=== PATIENT | female | born 1970 | race Caucasian/White ===

== ENCOUNTER 2017-04-17 11:07 | Outpatient (POV) | payer BC, SELFPAY | END 2017-04-17 16:30 | disposition home or self-care (01) | PROVIDERS: Family Provider Family Medicine; PCP Family Medicine; Visit Provider Urology | DX: R32 Unspecified urinary incontinence (principal) | CPT/HCPCS: 99213; 81000 ==

== ENCOUNTER → 2018-02-19 14:26 | Outpatient (POV) | payer OTHER, SELFPAY | PROVIDERS: Family Provider Family Medicine; PCP Family Medicine; Visit Provider Dermatology | DX: Z00.00 Encounter for general adult medical examination without abnormal findings (principal) ==

== ENCOUNTER → 2018-08-19 06:40 | Outpatient (CLI) | payer OTHER, SELFPAY ==
--- NOTE | 2018-08-19 06:43 | CA_ITS ---
PROCEDURE: 2-D M-mode and color Doppler study INDICATIONS FOR THE TEST: Chest pain COPD Heart Murmur Tobacco SmokingX Palpitations Fatigue Syncope Edema HypertensionXDiabetes Mellitus Rheumatic Fever SOBXDOEXObesityXHyperlipidemia Family History HDX Additional History PATIENT INFORMATION HEIGHT: 66 WEIGHT:278 GENDER: Female B/P:148/73 2-D/M-MODE INTERPRETATION: 2-D MEASUREMENTS OBSERVED VALUES IN CMS Right Ventricular Dimension (RVDd) 2.2 Interventricular Septum (Thickness)(IVsd) 1.1 Left Ventricular Internal Dimensions(LVIDd) 5.6 Left Ventricular Posterior Wall (Thickness)(LVPWd) .9 Aortic Root 3.0 Aortic Cusp Separation 1.9 Left Atrial Dimensions (LAD) 3.4 2D 1. Technically difficult study because of the patient's factor and poor acoustic windows 2. Left atrium is mildly enlarged, left ventricle is normal size, there is mild concentric left ventricular hypertrophy, visually estimated ejection fraction approximately 45-50%, there is marked hypokinesis involving the basal septum and inferior basal wall. 3. The right atrium and the ventricular normal size and contractility. 4. The aortic valve is minimally thickened and fibrosed. 5. The mitral valve has mitral annular calcification leaflets are minimally thickened. 6. The tricuspid valve is grossly normal. 7. The pulmonic valve is poorly visualized. 8. No significant pericardial effusion noted. DOPPLER INTERROGATION: Doppler interrogation of the aortic, mitral and tricuspid valvular presence of mild mitral and tricuspid regurgitation, tricuspid regurgitation jet velocity is inadequate for calculation of the right ventricular systolic pressure, diastolic parameters are within normal range. CONCLUSION: 1. Technically difficult study because of the patient's factors and poor acoustic windows 2. Mildly enlarged left atrium, normal left ventricular size, mild concentric left ventricular hypertrophy, visually estimated ejection fraction of 45-50% with segmental wall motion abnormality described above, diastolic parameters are within normal range. 3. Mild mitral and tricuspid regurgitation 4. No significant pericardial effusion noted.
--- NOTE | 2018-08-19 06:43 | NM_ITS ---
CARDIOLITE SPECT MYOCARDIAL PERFUSION LEXISCAN, REST AND STRESS: [facility] REVIEW QGS EF AND WALL MOTION EVALUATION: QPS - PERFUSION EVALUATION HISTORY: Chest pain, SOB, Fatigue, CAD, Tobacco use DOSE: 10.17 mCi technetium 99m mibi intravenously at rest followed by 29.4 mCi technetium 99m mibi following the intravenous ministration of 0.4 mg of Lexiscan. Resting blood pressure is 115/52. Stress blood pressure 130/62. FINDINGS: Ejection fraction is calculated to be 52%. Stress images reveal decreased activity in the anterior apical wall with no significant change in rest images. Gated images calculated ejection fraction of 52% with normal wall motion IMPRESSION: Decreased activity in the anterior apical wall with both stress and rest with normal ejection fraction normal wall motion. This test suggests breast attenuation however clinical correlation is advised
--- NOTE | 2018-08-19 07:54 | HMH.ITSHM ---
Current Home Medications as stated by this patient Riya Garcia or employer relations representative. []ZYRTEC SINGULAIR PROBIOTIC GABAPENTIN ASA FENOFIBRATE VITAMIN E
== END ==
PROVIDERS: PCP Family Medicine; Visit Provider Internal Medicine Cardiovascular Disease
DX: R06.02 Shortness of breath (principal); R07.9 Chest pain, unspecified; E78.5 Hyperlipidemia, unspecified; I10 Essential (primary) hypertension; I25.10 Atherosclerotic heart disease of native coronary artery without angina pectoris; Z72.0 Tobacco use; Z82.49 Family history of ischemic heart disease and other diseases of the circulatory system
CPT/HCPCS: 78452; 93017; 93306; A9502; J2785

== ENCOUNTER → 2020-03-24 12:36 | Outpatient (CLI) | payer BC, SELFPAY ==
--- NOTE | 2020-03-24 12:44 | XR_ITS ---
PROCEDURE: XR WRIST RT MIN 3V CLINICAL INDICATION: BL CTS Pain COMPARISON: CR WRR3 WRIST-3 VIEWS-RT from 11/25/2013 FINDINGS: No fracture or dislocation. No lytic or blastic change. There is normal mineralization. The joint spaces are well-preserved. No significant degenerative/arthritic changes. No erosive changes evident. Other findings:None. IMPRESSION: No acute findings. Dictated by: Juan Bar MD 03/24/2020 14:15 Juan Bar MD in [facility] 03/24/2020 14:15
--- NOTE | 2020-03-24 12:44 | XR_ITS ---
PROCEDURE: XR WRIST LT MIN 3V CLINICAL INDICATION: BL CTS Pain COMPARISON: CR WRR3 WRIST-3 VIEWS-RT from 11/25/2013 FINDINGS: No fracture or dislocation. No lytic or blastic change. There is normal mineralization. The joint spaces are well-preserved. No significant degenerative/arthritic changes. No erosive changes evident. Other findings:None. IMPRESSION: No acute findings. Dictated by: Juan Bar MD 03/24/2020 14:15 Juan Bar MD in [facility] 03/24/2020 14:15
== END ==
PROVIDERS: PCP Family Medicine; Visit Provider Orthopaedic Surgery
DX: M25.532 Pain in left wrist (principal); M25.531 Pain in right wrist
CPT/HCPCS: 73110

== ENCOUNTER → 2020-05-10 08:14 | Outpatient (CLI) | payer BC, SELFPAY ==
[2020-05-10 08:17] LABS: MANUAL DIFFERENTIAL MANUAL DIFFERENTIAL (MANUAL DIFF)
[2020-05-10 09:52] LABS: Basophils # 0.1 K/mm3 (0-0.2); Basophils % 0.7 % (0.1-2.0); Eosinophils # 0.1 K/mm3 (0.0-0.4); Eosinophils % 1.3 % (0.1-12.0); Hematocrit 42.4 % (37.0-47.0); Hemoglobin 14.3 g/dL (12.2-16.2); Lymphocytes # 2.8 K/mm3 (0.7-4.5); Lymphocytes % 41.9 % (10-50); Mean Corpuscular HGB Conc 33.8 g/dL (31.8-35.4); Mean Corpuscular Hemoglobin 31.4 pg (27.0-31.2); Mean Platelet Volume 8.3 fl (7.4-10.4); Monocytes # 0.4 K/mm3 (0.1-1.0); Neutrophils # 3.3 K/mm3 (1.8-7.8); Neutrophils % 50.1 % (37.0-80.0); Platelet Count 267 K/mm3 (142-424); Red Blood Count 4.56 M/mm3 (4.20-5.40); Red Cell Distribution Width 13.8 % (11.5-17.5); White Blood Count 6.6 K/mm3 (4.8-10.8)
[2020-05-10 10:11] LABS: Chloride 105 mmol/L (98-107); Sodium 139 mmol/L (136-145)
[2020-05-10 10:14] LABS: Alanine Aminotransferase 46 U/L (12-78); Albumin Level 3.8 g/dl (3.5-5.0); Albumin/Globulin Ratio 1.3 (1.1-1.8); Alkaline Phosphatase 103 U/L (38-126); Aspartate Amino Transferase 34 U/L (14-36); Bilirubin,Total 0.4 mg/dl (0.2-1.3); Blood Urea Nitrogen 10 mg/dl (7-17); Calcium 10.4 mg/dl (8.4-10.2); Carbon Dioxide 27 mmol/L (22.0-30.0); Estimated Glomerular Filt Rate 76 ml/min (>60); GFR (African American) 92 ML/MIN (>60); Globulin 2.9 g/dL (1.3-3.2); Glucose 185 mg/dl (74-100); Total Protein,Serum 6.7 g/dl (6.3-8.2)
[2020-05-10 12:08] LABS: Eosinophils % 1 % (0-3); Lymphocytes % 34 % (10-50); Monocytes % 6 % (2-9); Neutrophils % 59 % (42-76); Platelet Estimate Normal; RBC Morphology Normal; Total Cells Counted 100
== END ==
PROVIDERS: Visit Provider Orthopaedic Surgery
DX: M65.30 Trigger finger, unspecified finger (principal); M79.609 Pain in unspecified limb; R20.2 Paresthesia of skin
CPT/HCPCS: 36415; 80053; 85007; 85014; 85018; 85048; 85049

== ENCOUNTER → 2020-05-17 07:34 | Outpatient (CLI) | payer BC, SELFPAY ==
[2020-05-17 10:02] LABS: Coronavirus 19 IgG Antibody Negative (Negative); Coronavirus 19 IgM Antibody Negative (Negative)
== END ==
PROVIDERS: Visit Provider Orthopaedic Surgery
DX: Z01.818 Encounter for other preprocedural examination (principal); Z11.52 Encounter for screening for COVID-19; M65.30 Trigger finger, unspecified finger; M79.609 Pain in unspecified limb; R20.2 Paresthesia of skin
CPT/HCPCS: 36415; 86328

== ENCOUNTER 2020-05-18 06:07 | Day surgery (SDC) | payer BC, OTHER, SELFPAY ==
[2020-05-11 10:04] VITALS: BMI 41.9
[2020-05-18] VITALS (11 sets, daily range): BP systolic 115–169; BP diastolic 65–101; PULSE 84–103; RESP 16–20; TEMP 36.3–36.7; O2SAT 93–97
--- NOTE | 2020-05-18 09:08 | P.PN_ITS ---
[facility] Anesthesia Checklist - Patient Identification Patient Identification: Arm Band, Verbal (Name & ) - Structural Data Admitted From: Home Planned Operative Procedure/s: left ctr Consent for Planned Operative Procedure(s) Verified: Yes Verified Documents: History and Physical - NPO Status Verified Time NPO: 00:00 - Chart Verification Results Verified: CBC, BMP - Additional verifications Patient : No Anesthesia Reactions: No Hx Blood Transfusions: No Blood Transfusion Reaction: No Cephalosporin Allergy: No Previous Colonoscopy: Yes - Cardiovascular Assessment Heart Sounds: S1 & S2 Pulse Strength: Baseline Pulse Rhythm: Regular Peripheral Edema: No - Airway Assessment C-Spine Mobility Assessed: Yes TMJ Mobility Assessed: Yes Dentition: Good Dentition - Neurological Assessment Level of Consciousness: Awake, Alert, Appropriate Hx Seizures: No Numbness or tingling in extremities: No - Anesthesia Plan Anesthesia Risk discussed: Yes Anesthesia Plan: Verified ASA Class: III Anesthesia Type: General [facility] History I have reviewed the patient's past medical history: Yes Medical History: Reports:: Hyperlipidemia Denies:: Cancer, Diabetes Mellitus Type 1, Diabetes Mellitus Type 2, Internal Pacemaker, MRSA, Seizures *Have you ever received a pneumonia vaccine?: Yes *Have you received a flu vaccine this season?: Yes Other Medical History: Reports: Arthritis. Denies: Blood Transfusion Reaction Anesthesia experience/problems:: none Laterality Cases: Left: Other Other Surgeries: Yes: Appendectomy, Cholecystectomy, Colonoscopy, Dilation and Curettage, Diagnostic Lap, Hysterectomy-Total. No: Pacemaker Amputation: No Fractures: No - *Social History Last grade of school completed: GED Smoking Status: Current every day smoker Tobacco Type: cigarettes #Yrs smoked (if former smoker): 35 Smoking End Date: 2017 Alcohol Intake: never Substance Use Type: denies use *Occupational Status:: employed Housing: apartment Household Members: none *Travel in the last 8 weeks: None Family Hx:: Asthma, Cancer, Hyperlipidemia, Diabetes, Heart Attack, Hypertension, Coronary Artery Disease
--- NOTE | 2020-05-18 09:12 | HMH.OPNOTE ---
Date of procedure: 05/18/20 Pre-op Diagnosis:: Left upper extremity: 1) carpal tunnel syndrome 2) ring trigger finger Post-op Diagnosis:: Left upper extremity: 1) carpal tunnel syndrome 2) ring trigger finger Procedure performed:: Left upper extremity: 1) carpal tunnel release 2) ring trigger finger release Surgeon:: Nava Nagy MD Dental Services Director(s):: Mona Guo SCIENTIFIC DIVER:: Ketan Brasher Anesthesia: local, LMA Estimated blood loss (mL): 5 Clinical Note:: 49-year-old fbcui-mzwe-kubjoshx female with bilateral hand pain, numbness and tingling as well as pain and locking in the left ring finger. Symptoms have been present on and off for about 15 years. The left hand is more symptomatic than the right. She has predominantly numbness and tingling on the first 3-4 digits of each hand, but intermittent pain is present as well. Symptoms are increased with work and at night. They wake her up frequently from sleep. 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 No history of diabetes. She is a former smoker (quit 1 year ago), BMI 41. She has tried night bracing with no help. EMG-NCS BUE 04/12/2020 = bilateral median nerve entrapment at the wrist (carpal tunnel syndrome) electrophysiologically moderate. I discussed treatment options with the patient, and she would like to proceed with surgery on the left side at this time, and would like to treat the carpal tunnel and trigger finger at the same time. I discussed the risks of surgery with the patient, including but not limited to: bleeding, infection, neurovascular damage, wound dehiscence, persistence of symptoms despite surgery, recurrence of CTS and need for revision surgery in the future, in addition to trigger finger reoccurrence or development in other digits. The patient vocalized understanding and provided informed consent for the procedure. Operative findings:: median nerve compression at L wrist thickening of A1 afua ring finger LUE Operative note:: The patient was identified in preoperative holding and the L wrist + L ring finger signed by myself. I reviewed the consent with the patient, answering all questions. She was then seen by anesthesia and the decision made to perform the surgery with general/LMA. The patient was then taken to the OR and placed supine on the operative table with a hand table attached under the left upper extremity. 2 grams cefazolin was infused and general anesthesia induced. Non-sterile tourniquet was placed on the upper L arm and the arm prepped and draped in the usual sterile fashion. Timeout was performed, identifying the correct patient, correct procedure, and correct site. The procedure was begun by exsanguinating the patient's L upper extremity with an Esmarch and elevating the tourniquet to 250 mmHg. The planned surgical incisions were drawn in marking pen. The carpal tunnel incision was drawn using anatomic landmarks, specifically at the intersection of Flores's cardinal line and the radial border of the ring finger, extending proximally to the wrist flexion crease. A second incision was drawn at the volar base of the ring finger, centered over the MCP/A1 afua. The procedure was begun with the carpal tunnel release; incision was made over the delineated area using a 15 blade. After the skin was incised, tenotomy scissors were used to bluntly spread the subcutaneous tissue. Tissue was spread until the transverse carpal ligament was identified. The proximal margin of the transverse carpal ligament was palpated by a [place] elevator, which was slipped under the ligament to protect the underlying contents of the carpal tunnel. Using a fresh 15 blade, I lightly teased to the fibers of the transverse carpal ligament and released them from proximally to distally, taking care to protect and avoid the median nerve. I continued to cut down onto the [place] moving distally, until the entire transverse carpal
--- NOTE | 2020-05-18 09:12 | HMH.ANESI ---
[facility] Anesthesia Record Part I Intake, IV Amount: 400 Estimated blood loss (mL): 5 Urine output (mL): 0 Blood Products used (#): none Blood Pressure: 169/101 SaO2: 93 Pulse Rate: 93 Respiratory Rate: 20 Temperature: 98.0 F Patient is:: Awake, Stable Stable to PACU at:: 09:06
--- NOTE | 2020-05-18 10:00 | HMH.ANESII ---
[facility] Anesthesia Record Part II Discharge Time: 09:36 Destination: Surgical Day Care (OP Surgery) PACU nurse assessment reviewed?: Yes Patient Condition:: Good Anesthesia Complications:: None Swallowing reflex intact?: Yes Cyanosis?: No Blood Pressure: 137/77 Pulse Rate: 87 Temperature: 97.3 F Mental Status: Alert & Oriented Pain level:: 3 Nausea and/or vomitting:: None Intake, IV Amount: 45
--- NOTE | 2020-05-18 10:48 | PC.NURSE ---
0934-detailed report called to ETHAN Eagle 0936-pt transported to post op via stretcher w/david rails up and left in care of ETHAN Eagle and AnkitRN, detailed bedside report given, quiques, pt stable
== END 2020-05-18 10:07 | disposition home or self-care (01) ==
LOC: OR 06:08
PROVIDERS: PCP Family Medicine; Visit Provider Orthopaedic Surgery
PROC: (CPT 64721; principal; 2020-05-18 07:30)
DX: G56.02 Carpal tunnel syndrome, left upper limb (principal); M65.342 Trigger finger, left ring finger
CPT/HCPCS: 64721; 26055; 96374; J0131; J2405

== ENCOUNTER → 2021-02-23 17:11 | Outpatient (CLI) | payer BC, SELFPAY | PROVIDERS: Visit Provider Orthopaedic Surgery | DX: Z01.812 Encounter for preprocedural laboratory examination (principal); Z11.52 Encounter for screening for COVID-19; U07.1 COVID-19 | CPT/HCPCS: C9803; U0003; U0005 ==

== ENCOUNTER 2021-04-22 06:03 | Day surgery (SDC) | payer BC, SELFPAY ==
[2021-04-18 11:50] VITALS: BMI 44.4
[2021-04-22 06:20] VITALS: BP 147/82; PULSE 104; RESP 18; TEMP 36.4; O2SAT 96
--- NOTE | 2021-04-22 08:40 | P.PN_ITS ---
[facility] Anesthesia Checklist - Patient Identification Patient Identification: Arm Band - Structural Data Admitted From: Home Planned Operative Procedure/s: Right CTR Consent for Planned Operative Procedure(s) Verified: Yes Verified Documents: Surgical Consent, History and Physical - NPO Status Verified Time NPO: 00:00 - Additional verifications Anesthesia Reactions: No Hx Blood Transfusions: No Blood Transfusion Reaction: No - Airway Assessment C-Spine Mobility Assessed: Yes (mp2) TMJ Mobility Assessed: Yes Dentition: Edentulous - Neurological Assessment Level of Consciousness: Awake, Alert - Anesthesia Plan Anesthesia Risk discussed: Yes Anesthesia Plan: Verified ASA Class: III Anesthesia Type: MAC [facility] History I have reviewed the patient's past medical history: Yes Medical History: Reports:: Gastroesophageal Reflux Disease(GERD), Hyperlipidemia Denies:: Cancer, Diabetes Mellitus Type 1, Diabetes Mellitus Type 2, Internal Pacemaker, MRSA, Seizures *Have you ever received a pneumonia vaccine?: No *Have you received a flu vaccine this season?: No Other Medical History: Reports: Arthritis. Denies: Blood Transfusion Reaction Anesthesia experience/problems:: nac Laterality Cases: Left: Carotid Endarterectomy, Carpal Tunnel Release, Right: Other Other Surgeries: Yes: Appendectomy, Cholecystectomy, Colonoscopy, Dilation and Curettage, Diagnostic Lap, Hysterectomy-Total. No: Pacemaker Amputation: No Fractures: Yes - *Social History Last grade of school completed: High school graduate Smoking Status: Never smoker Tobacco Type: cigarettes #Yrs smoked (if former smoker): 35 Alcohol Intake: never Substance Use Type: denies use *Occupational Status:: employed Housing: house Household Members: none *Travel in the last 8 weeks: None Family Hx:: Coronary Artery Disease, Diabetes, Heart Attack, Hypertension
[2021-04-22 08:48] VITALS: TEMP 43
--- NOTE | 2021-04-22 09:00 | P.OP_ITS ---
Date of procedure: 04/22/21 Pre-op Diagnosis:: Right carpal tunnel syndrome Post-op Diagnosis:: Same Procedure performed:: Right endoscopic carpal tunnel release [id number] Surgeon:: Carlton Alcantara JR, MD Anesthesia: MAC, local Estimated blood loss (mL): 3 Operative findings:: Transverse carpal ligament release was confirmed visually and via palpation with a [place] Operative note:: 50-year-old female with right carpal tunnel syndrome. She had previously undergone left carpal tunnel release and had good results. She complained of burning in her right hand that would sometimes wake her up from sleep. She had thenar wasting on exam. I had a discussion with her regarding further management. She was interested in more durable intervention. I recommended right endoscopic carpal tunnel release. She was amenable with the plan. We discussed the risk and benefits of surgery. Risks included but were not limited to pain, bleeding, infection, damage to adjacent structures, need for further surgery, wound healing complications, loss of limb, . Patient expressed verbal consent and written consent was obtained for the above procedure. Patient was identified in preoperative holding. Operative site was marked in indelible ink. History, physical, consent were reviewed and updated. Patient was surrendered to the anesthesia team, taken to the operative suite, placed supine on a well-padded operative table. A nonsterile tourniquet placed on the proximal brachium. Anesthesia was induced. The operative extremity was prepped and draped in the usual sterile fashion. The operative team donned sterile gowns and gloves and a timeout was called. All in attendance agreed regarding the patient's identity, procedure, operative site. Weight-based dose of antibiotics was given prior to incision. I made a transverse incision at the proximal wrist crease proximal to the transverse carpal ligament. I bluntly dissected through skin and subcutaneous tissue with care taken to avoid injuring the palmaris longus. I transected the fascia, inserted a dilating probe deep to the transverse carpal ligament and noted its depth distal to the transverse carpal ligament. I then inserted a cannula and scope, visualize the fibers of the transverse carpal ligament. I took to the distal aspect of the transverse carpal ligament to confirm its location, then with a curved blade under endoscopic visualization, transected the fibers of the transverse carpal ligament and noted that they retracted medially and laterally. I removed the cannula, achieved hemostasis, closed with Monocryl, Prineo and Dermabond. Tourniquet time (min): 21 Condition: stable Disposition: PACU Complications:: None apparent
[2021-04-22 09:05] VITALS: BP 156/89; PULSE 107; RESP 16; TEMP 36.8; O2SAT 91
[2021-04-22 09:20] VITALS: BP 156/87; PULSE 98; RESP 18; O2SAT 92
[2021-04-22 09:35] VITALS: BP 148/80; PULSE 88; RESP 16; O2SAT 95
== END 2021-04-22 09:35 | disposition home or self-care (01) ==
LOC: OR 06:06
PROVIDERS: PCP Family Medicine; Visit Provider Orthopaedic Surgery
PROC: (CPT 64721; principal; 2021-04-22 07:30)
DX: G56.01 Carpal tunnel syndrome, right upper limb (principal)
CPT/HCPCS: 64721; 96374

== ENCOUNTER → 2021-08-22 09:15 | Outpatient (POV) | payer BC, SELFPAY ==
[2021-08-22 09:58] VITALS: BP 140/80; PULSE 90; RESP 18; TEMP 37; O2SAT 98; BMI 45.5
[2021-08-22 10:59] LABS: Barbiturates Screen,Urine Negative ng/ml (<200)
[2021-08-22 11:00] LABS: Amphetamine/Metha Screen,Urine Negative ng/ml (<1000); Benzodiazepines Screen,Urine Negative ng/ml (<200)
--- NOTE | 2021-08-22 11:00 | HMH.PMCON ---
Assessment and Plan (1) Degenerative joint disease (DJD) of lumbar spine Status: Acute Category: Medical Code(s): M47.816 - Spondylosis without myelopathy or radiculopathy, lumbar region (2) Facet arthropathy Status: Acute Category: Medical Code(s): M47.819 - Spondylosis without myelopathy or radiculopathy, site unspecified (3) Lumbar spondylosis Status: Acute Category: Medical Code(s): M47.816 - Spondylosis without myelopathy or radiculopathy, lumbar region (4) Sacroiliitis Status: Acute Category: Medical Code(s): M46.1 - Sacroiliitis, not elsewhere classified - Assessment and plan all Dx Assessment and Plan for all problems:: Patient presents with chronic low back pain that radiates to bilateral lower extremities. Patient has had lumbar RFA with significant relief in the past. She has not repeated this in the last several years. She also had a back surgery with minimal relief. She has been complaining of left hip pain that radiates to her left thigh and does not cross her left knee. She cannot tolerate any prolonged activity such as sitting, standing, and walking. Left SI is positive for ANIA, [place]'s, [place]'s, [place]'s, compression, and distraction. We will schedule the patient for a left SI injection. Risks and benefits of the procedure have been explained to the patient. Patient would like to proceed with the procedure. For her oral pain medication, we will continue the patient's [place] 5 mg #12 tabs for breakthrough pain. Her PCP can continue the gabapentin. Once we get the patient established with injective therapy, we will consider titrating her [place] down and manage her with OTC in the future. Patient has been instructed to contact the clinic with any concerns before the next appointment. Dr. Bedoya has reviewed this note and agrees with this plan of care. This note was dictated using voice recognition software and make contain errors or omissions. HPI - Data of Consult Patient: new to practice Consult date: 08/22/21 Requesting Physician: ASHELY Brown - Consult Narrative Reason for consult: Chronic low back pain History of present illness: Ms. Garcia is a 50 year old female who presents today as a new patient. Patient is referred by Dr. Ayon. Thank you for the referral Patient presents today with chronic low back pain that radiates to bilateral lower extremities. Patient is currently being managed for degenerative disc disease of lumbar spine with lumbar radiculopathy symptoms, facet arthropathy, postlaminectomy syndrome. Patient previously had facet injections and lumbar RFA in [facility] several years ago. Patient says that she had significant relief after the lumbar RFA. She has not been able to go back there because the clinic closed. She recently saw Dr. Galvin who recommended that she get facet injections. Patient states that she did not have a good interaction with so she wanted to be referred to another pain specialist. She was being prescribed [place] 5mg #21 tabs and Gabapentin 800mg daily by her Dr. Ayon. She was told by her PCP that she cannot continue prescribing the [place] so Dr. Galvin continued it. And now that she does not want to continue seeing him, she wants us to continue this medication. She states that she takes this medication as needed. She takes about 2-3 a week for breakthrough pain. She has never had any inappropriate drug screens. Denies use of any illicit drugs. She also takes [id number] medications as needed. [facility] #[id number] with an active morphine equivalent of 0. CC: ASHELY Brown [facility] History I have reviewed the patient's past medical history: Yes Medical History: Reports:: Gastroesophageal Reflux Disease(GERD), Hyperlipidemia Denies:: Cancer, Diabetes Mellitus Type 1, Diabetes Mellitus Type 2, Internal Pacemaker, MRSA, Seizures *Have you ever received a pneumonia vaccine?: Yes *Have you received a flu vacci
[2021-08-22 11:04] LABS: Cannabinoid Screen,Urine Negative ng/ml (<50); Methadone Screen,Urine Negative ng/ml (<300)
[2021-08-22 11:05] LABS: Cocaine Screen,Urine Negative ng/ml (<300); Opiate Screen,Urine Negative ng/ml (<300)
[2021-08-22 11:06] LABS: Phencyclidine Screen,Urine Negative ng/ml (<25)
[2021-08-30 16:12] LABS: Opiates Negative (Cutoff=100)
== END ==
PROVIDERS: Visit Provider Student in an Organized Health Care Education/Training Program
DX: M47.816 Spondylosis without myelopathy or radiculopathy, lumbar region (principal); M46.1 Sacroiliitis, not elsewhere classified
CPT/HCPCS: 80305; 80361; 80365; 99202; G0463; G0480

== ENCOUNTER → 2021-09-02 13:47 | Day surgery (SDC) | payer BC, SELFPAY ==
[2021-09-02 13:54] VITALS: BP 127/67; PULSE 106; RESP 20; TEMP 36.4; O2SAT 98; BMI 45.0
[2021-09-02 14:14] VITALS: BP 142/90; PULSE 109; RESP 20; O2SAT 98
[2021-09-02 14:15] VITALS: BP 130/98; PULSE 109; RESP 18; O2SAT 99
--- NOTE | 2021-09-02 14:18 | HMH.PMPROC ---
- Procedure Date: 09/02/21 Time: 14:19 Anesthesiologist:: Michael Souza CRNA Complications:: None Pre-procedure Diagnosis:: Left sacroiliitis Post-procedure Diagnosis:: Same Indications for Procedure:: Very pleasant 50-year-old white female that comes to our injection clinic today for left SI joint injection. Patient has had multiple injections in her lumbar spine in the past. She has had a history of lumbar degenerative disc disease, lumbar radiculopathy, lumbar facet arthropathy. Patient has not had a left SI joint injection in the past. She rates the left posterior hip pain 8/10. Procedure Details:: Procedure: Left sacroiliac injection under fluoroscopy Informed consent was obtained and the risk and benefits of the procedure were explained to the patient.~ The patient was taken to the procedure room and noninvasive monitors were placed including noninvasive blood pressure cuff and pulse oximeter.~ The patient was placed prone on the procedure table.~ The~ left hip was cleansed using Betadine as a cleansing solution.~ C-arm fluorosocpy was used to view the left SI joint.~ The skin and subcutaneous tissues were anesthetized using Lidocaine 1.5% and a 25-gauge needle.~ After this, a 22-gauge spinal needle was inserted under fluoroscopic guidance into the inferior aspect of the left SI joint.~ Omnipaque dye was injected and a good spread was seen throughout the joint.~ After this, approximately 5 mL of bupivacaine 0.25% and Depo-Medrol 40 mg was incrementally injected into the sacroiliac joint.~ The patient tolerated the procedure well with no complications.~ The patient was observed in the Pain Clinic for a period of 30-45 minutes, then discharged home neurologically intact.~ Plan and Disposition:: Patient was discharged with essentially no pain in the left posterior hip area.
[2021-09-02 14:24] VITALS: BP 137/78; PULSE 104; RESP 18; O2SAT 98
== END ==
PROVIDERS: PCP Family Medicine; Visit Provider Nurse Anesthetist, Certified Registered
DX: M46.1 Sacroiliitis, not elsewhere classified (principal); K21.9 Gastro-esophageal reflux disease without esophagitis; E78.5 Hyperlipidemia, unspecified; M19.90 Unspecified osteoarthritis, unspecified site; Z72.0 Tobacco use; Z88.6 Allergy status to analgesic agent; Z91.030 Bee allergy status; Z88.5 Allergy status to narcotic agent; Z91.018 Allergy to other foods; Z91.048 Other nonmedicinal substance allergy status
CPT/HCPCS: 27096; G0260; J1040

== ENCOUNTER → 2021-10-20 08:53 | Outpatient (POV) | payer BC, SELFPAY ==
[2021-10-20 09:00] VITALS: BP 116/76; PULSE 96; RESP 19; TEMP 36.6; O2SAT 99; BMI 44.9
--- NOTE | 2021-10-20 09:21 | HMH.PAINSOAP ---
[facility] Pain Management SOAP Note Subjective:: Patient is a pleasant 50-year-old female who presents today for follow-up after a left SI injection. Patient is current being treated for degenerative disc disease of lumbar spine, facet arthropathy, lumbar spondylosis, sacroiliitis. After the procedure, patient had significant relief of 70 to 80% on the left SI that lasted for about 5 days. Denies any issues after this procedure. Today, patient states that she has been having issues with her low back that radiates to the left leg. Patient has had lumbar RFA in the past that provided significant relief. She has not repeated this procedure in several years. She states that the second time that she had the lumbar RFA, she had shorter relief. 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 She does not want to be referred to Neurosurgery. She says that the only thing that is helping her is when she takes advil and [place] for breakthrough pain. She also has some lidocaine patches that she sometimes use. Rates pain today as 7/10. She is also prescribed Gabapentin 800mg QHS that is prescribed by her PCP. Leander [phone], MEQ 0. Review of Systems: General: No recent weight changes, no fever, no sleep disturbances Respiratory: No cough, no shortness of air, no recurring pulmonary infections Cardiovascular/peripheral vascular: No chest pain, no palpitations, no edema, no shortness of breath Gastrointestinal: No new onset incontinence, normal bowel movements reported Genitourinary: No new onset incontinence Musculoskeletal: Low back pain Psychiatric: [Normal mood/affect] Neurological: [Denies weakness in extremities], [denies balance issues] Objective:: Physical Exam: General: Alert and oriented x3, no acute distress, pleasant and cooperative Lungs: Respirations even and unlabored, symmetrical chest expansion Eyes: PERRL Musculoskeletal: Flexion and extension of lumbar [spine] somewhat guarded secondary to pain, [antalgic gait noted] Neurological: Speech clear, no gross sensory deficit Assessment:: Degenerative disease of lumbar spine, facet arthropathy, lumbar spondylosis, sacroiliitis Plan:: We will continue the patient's [place] 5 mg BID #12 tabs. I will also start the patient on Ibuprofen 800mg BID. We will provide the patient one month worth of refill. I discussed with the patient that she may benefit from injections in her low back. I have also offered to repeat the lumbar RFA or we can try trigger point injections around the bilateral lumbar paraspinous muscles. She is a bit hesitant to move forward with any procedures at the moment. Will follow with this patient in 1 month. Patient has been instructed to contact the clinic with any concerns before the next appointment. Dr. Bedoya has reviewed this note and agrees with this plan of care. This note was dictated using voice recognition software and make contain errors or omissions. [facility] History Medical History: Reports:: Diabetes Mellitus Type 2, Gastroesophageal Reflux Disease(GERD), Hyperlipidemia, Hypertension Denies:: Cancer, Diabetes Mellitus Type 1, Internal Pacemaker, MRSA, Seizures *Have you ever received a pneumonia vaccine?: No *Have you received a flu vaccine this season?: No Other Medical History: Reports: Arthritis. Denies: Blood Transfusion Reaction Laterality Cases: Left: Carotid Endarterectomy, Right: Other, Bilateral: Carpal Tunnel Release Other Surgeries: Yes: Appendectomy, Cholecystectomy, Colonoscopy, Dilation and Curettage, Diagnostic Lap, Hysterectomy-Total. No: Pacemaker Amputation: No Fractures: Yes - *Social History Smoking Status: Current every day smoker Tobacco Type: cigarettes # Packs/Day (cigarettes): 1 #Yrs smoked (if former smoker): 35 Alcohol Intake: never Substance Use Type: denies use *Occupational Status:: employed Housing: house Household Members: none *Travel in the last 8 weeks: None Family Hx:: No significant family history
== END ==
PROVIDERS: Visit Provider Student in an Organized Health Care Education/Training Program
DX: M51.36 Other intervertebral disc degeneration, lumbar region (principal); M47.816 Spondylosis without myelopathy or radiculopathy, lumbar region; M46.1 Sacroiliitis, not elsewhere classified
CPT/HCPCS: 99212; G0463

== ENCOUNTER 2022-10-18 11:10 | Emergency (ER) | payer BC, SELFPAY ==
[2022-10-18] VITALS (8 sets, daily range): BP systolic 108–123; BP diastolic 60–73; PULSE 77–100; RESP 18; TEMP 36.4–36.6; O2SAT 94–98; BMI 43.5
[2022-10-18 11:41] LABS: Microscopic, Urine URINE MICROSCOPIC (MICROSCOPIC)
[2022-10-18 11:43] LABS: Appearance,Urine CLEAR (Clear); Bilirubin,Urine Negative (Negative); Blood, Urine TRACE-I (Negative); Color,Urine YELLOW (Yellow); Glucose,Urine (UA) Negative (Negative); Ketones,Urine Negative (Negative); Leukocyte Esterase,Urine Negative (Negative); Nitrate,Urine Negative (Negative); PH,Urine 6.5 (5.0-8.5); Protein,Urine Negative (Negative); Specific Gravity, Urine <= 1.005 (1.005-1.030); Urobilinogen,Urine 0.2 EU/dl (0.2)
[2022-10-18 11:44] LABS: Basophils % 0.5 % (0.1-2.0); Eosinophils # 0.1 K/mm3 (0.0-0.4); Eosinophils % 1.7 % (0.1-12.0); Hematocrit 43.6 % (37.0-47.0); Hemoglobin 13.9 g/dL (12.2-16.2); Lymphocytes # 3.2 K/mm3 (0.7-4.5); Lymphocytes % 48.8 % (10-50); Mean Corpuscular HGB Conc 31.9 g/dL (31.8-35.4); Mean Corpuscular Hemoglobin 30.1 pg (27.0-31.2); Mean Corpuscular Volume 94.2 fl (81-99); Mean Platelet Volume 8.2 fl (7.4-10.4); Monocytes # 0.4 K/mm3 (0.1-1.0); Monocytes % 5.6 % (1.7-9.3); Neutrophils # 2.9 K/mm3 (1.8-7.8); Neutrophils % 43.4 % (37.0-80.0); Platelet Count 200 K/mm3 (142-424); Red Blood Count 4.63 M/mm3 (4.20-5.40); Red Cell Distribution Width 13.6 % (11.5-17.5); White Blood Count 6.6 K/mm3 (4.8-10.8)
[2022-10-18 11:46] LABS: Chloride 101 mmol/L (98-107)
[2022-10-18 11:47] LABS: Sodium 141 mmol/L (136-145)
[2022-10-18 11:49] LABS: Alanine Aminotransferase 61 U/L (12-78); Aspartate Amino Transferase 60 U/L (14-36); Blood Urea Nitrogen 6 mg/dl (7-17); Creatinine Clearance Estimated 88 mL/min (50-200); Estimated Glomerular Filt Rate 88 ml/min (>60); GFR (African American) 106 ML/MIN (>60)
[2022-10-18 11:50] LABS: Albumin Level 3.9 g/dl (3.5-5.0); Albumin/Globulin Ratio 1.2 (1.1-1.8); Alkaline Phosphatase 102 U/L (38-126); Bilirubin,Total 0.6 mg/dl (0.2-1.3); Calcium 10.3 mg/dl (8.4-10.2); Carbon Dioxide 32 mmol/L (22.0-30.0); Globulin 3.2 g/dL (1.3-3.2); Glucose 156 mg/dl (74-100); Total Protein,Serum 7.1 g/dl (6.3-8.2)
--- NOTE | 2022-10-18 11:52 | PC.NURSE ---
DR MCLEAN AT BEDSIDE
--- NOTE | 2022-10-18 11:55 | HMH.EDABDPAI ---
Discharge Plan Disposition Patient Disposition: Home, Self-Care Condition: Fair Prescriptions Prescriptions: New dicyclomine 20 mg tablet 20 mg PO QID PRN (Reason: abdominal pain) Qty: 20 0RF No Action aspirin [Adult Low Dose Aspirin] 81 mg tablet,delayed release (DR/EC) 81 mg PO ONCE krill oil 500 mg capsule 500 mg PO DAILY gabapentin 800 mg tablet 800 mg PO DAILY montelukast [Singulair] 10 mg tablet 10 mg PO QPM cetirizine [Zyrtec] 10 mg tablet 10 mg PO DAILY omeprazole 20 mg capsule,delayed release(DR/EC) 20 mg PO DAILY Adult 50 Plus Probiotic 4 billion cell capsule 4,000 mmu cells PO DAILY hydrochlorothiazide 25 MG tablet 25 mg PO DAILY vitamin E 400 UNIT capsule 400 unit PO DAILY vitamin N-swjvahsqjjyz-lgfvtnb 500 MG tablet,chewable 500 mg PO DAILY oxycodone 5 MG tablet 5 mg PO Q4HP PRN (Reason: Moderate To Severe Pain) Qty: 40 0RF metformin 1,000 MG tablet 1,000 mg PO DAILY hydrocodone-acetaminophen 1 EACH tablet 1 tab PO DAILY PRN (Reason: breakthrough pain) Qty: 12 0RF ibuprofen 800 MG tablet 800 mg PO BID Qty: 60 0RF Referrals Follow up/Referrals: Gladis Ayon [Primary Care Provider] - See instructions Activity Restrictions/Add. Instructions Additional Instructions/Restrictions: Please follow-up with your primary care doctor in about 3 to 4 days if you do not notice any improvement. Return to the emergency department immediately if you feel worse in any way. Your work-up today in the emergency department did not reveal any life-threatening or dangerous causes for your abdominal pain. However, you do have some swollen lymph nodes inside your abdomen. This could be an indication of something called mesenteric adenitis. This is a condition which is not dangerous and usually resolves on its own. You can take [id number]-dgvyowm ibuprofen and/or Tylenol. Clinical Impressions Clinical Impression: Acute mesenteric adenitis Instructions Patient Instructions: DI for Acute Abdominal Pain Discharge ED Provider: Jose Maria Piedra Abdominal Pain HPI General Chief Complaint: Abdominal Pain Stated Complaint: right side pains Time Seen by Provider: 10/18/22 11:53 Mode of Arrival: Ambulatory Source of Information: Patient Limitations: No Limitations Description of Symptoms (Recalled from ER Triage Doc. by RN): PT REPORTS INTERMITTENT RIGHT SIDED ABDOMINAL PAIN THAT BEGAN YESTERDAY. History of Present Illness HPI narrative: The patient presents to the emergency department complaining of right-sided abdominal pain that was sudden in onset while she was driving and began yesterday. It is intermittent. She did have some nausea with it. She has had a hysterectomy, appendectomy, and cholecystectomy. She denies any fevers. She has chronic diarrhea. Related Data Home Medications Medication Instructions Recorded Confirmed aspirin 81 mg tablet,delayed 81 mg PO ONCE heart health 08/14/17 10/20/21 release (Adult Low Dose Aspirin) gabapentin 800 mg tablet 800 mg PO DAILY Pain 08/14/17 10/20/21 krill oil 500 mg capsule 500 mg PO DAILY Supplement 08/14/17 10/20/21 cetirizine 10 mg tablet (Zyrtec) 10 mg PO DAILY Allergy symptoms 08/01/18 10/20/21 montelukast 10 mg tablet 10 mg PO QPM Allergy symptoms 08/01/18 10/20/21 (Singulair) lactobacillus combination no.9 4 4,000 mmu cells PO DAILY Supplement 09/02/18 10/20/21 billion cell capsule (Adult 50 Plus Probiotic) omeprazole 20 mg capsule,delayed 20 mg PO DAILY GERD 09/02/18 10/20/21 release hydrochlorothiazide 25 mg tablet 25 mg PO DAILY Fluid 04/18/21 10/20/21 vitamin C 500 mg-multivitamin with 500 mg PO DAILY Supplement 04/18/21 10/20/21 minerals chewable tablet vitamin E 268 mg (400 unit) capsule 400 unit PO DAILY Supplement 04/18/21 10/20/21 metformin 1,000 mg tablet 1,000 mg PO DAILY Diabetes 08/22/21 10/20/21 Previous Rx's Medication Instructions
--- NOTE | 2022-10-18 11:58 | CT_ITS ---
FINAL REPORT TECHNIQUE: Noncontrast exam CLINICAL HISTORY: Right-sided abdominal pain, rule out ureterolithia started yesterday with nausea FINDINGS: Abdomen: Lung bases are clear. Liver, spleen, pancreas and adrenal glands have a normal CT appearance in their limited unenhanced state. The patient has undergone a prior cholecystectomy. There is mild nonspecific adenopathy in the upper abdomen involving the celiac axis and pia hepatis. The largest node seen on image number 44 measures 24 x 14 mm in size. There is a portacaval node that measures 22 x 13 mm in size. The kidneys show no stone disease or obstruction. No obvious renal mass is present. No ureteral stones are present. Pelvis: No distal ureteral stones are seen. Bladder is unremarkable. The patient is status post hysterectomy. Mild diverticulosis of the distal colon is seen. There are no changes of appendicitis and no free fluid identified. IMPRESSION: No evidence of upper urinary tract stone disease or obstruction Mild nonspecific upper abdominal adenopathy. Would recommend a three-month follow-up CT for further evaluation. Reviewed, Interpreted and Dictated by Partha Calzada MD Transcribed by Manju Dunaway Authenticated and [facility]
[2022-10-18 11:59] LABS: Bacteria,Urine Trace /lpf; RBC,Urine Occasional #/hpf (0-3); Squamous Epithelial Cell,Urine Occasional #/hpf (0-5)
--- NOTE | 2022-10-18 12:13 | PC.NURSE ---
PT TO CT
--- NOTE | 2022-10-18 12:20 | PC.NURSE ---
PT RETURNED FROM CT
--- NOTE | 2022-10-18 13:54 | PC.NURSE ---
ROUNDED ON PT, NO NEEDS AT THIS TIME
== END 2022-10-18 14:20 | disposition home or self-care (01) ==
PROVIDERS: Emergency Provider Emergency Medicine; PCP Family Medicine
DX: I88.0 Nonspecific mesenteric lymphadenitis (principal); K52.9 Noninfective gastroenteritis and colitis, unspecified; F17.210 Nicotine dependence, cigarettes, uncomplicated
CPT/HCPCS: 74176; 80053; 81001; 85025; 99284; 99285